=== PATIENT | male | born 1955 | race Caucasian/White ===

== ENCOUNTER 2018-06-27 02:45 | Inpatient (IN) | payer OTHER ==
[~2018-06-27] VITALS: Ht 177.8 cm; Wt 109.6 kg
[2018-06-27] MEDS ORDERED: ONDANSETRON PF 4 MG/2 ML VIAL. IV ONE (03:00)
[2018-06-27] MEDS ORDERED: IV NORMAL SALINE 1,000ML 1,000 ML IV ONE ×2 (03:00→05:30)
[2018-06-27 03:13] LABS: BASO % 0 % (0-3); EOS # 0.2 x10^3/uL (0.0-0.7); EOS % 3 % (0-3); HEMATOCRIT 46.8 % (39.0-53.0); LYMPH # 2.5 x10^3/uL (1.0-4.8); LYMPH % 42 % (24-48); MEAN CORPUSCULAR HEMOGLOBIN 32 pg (25-35); MEAN CORPUSCULAR HGB CONC 34 g/dL (31-37); MEAN CORPUSCULAR VOLUME 93 fL (79-100); MONO # 0.4 x10^3/uL (0.0-1.1); MONO % 7 % (0-9); NEUT # 2.9 x10^3uL (1.8-7.7); NEUT % 48 % (31-73); PLATELET COUNT 244 x10^3/uL (140-400); RED BLOOD COUNT 5.02 x10^6/uL (4.30-5.70); RED CELL DISTRIBUTION WIDTH 13.5 % (11.5-14.5)
--- NOTE | 2018-06-27 03:13 | PHYS DOC ---
Adult General Chief Complaint Chief Complaint: vomiting HPI HPI 62-year-old male presents via EMS with altered mental status. Patient was last known well at 10 PM which was 5 hours ago. The patient woke up about an hour prior to arrival and felt like he was short of breath. He called EMS. When EMS arrived they found the patient to be diaphoretic and lethargic, but able to answer questions. He began vomiting and has vomited about 10 times prior to arrival. He was given 4 of Zofran IV without effect. The patient states that after he woke up he also felt like his left side was numb "like I had been sleeping on it". He is moving all his extremities. The patient's states that she noticed him having slurred speech while talking in the emergency room. The patient has been having a workup as an outpatient for dizziness the last couple weeks. He denies fever or chills. Review of Systems Review of Systems Constitutional: Denies fever or chills [] Eyes: Denies change in visual acuity, redness, or eye pain [] HENT: Denies nasal congestion or sore throat [] Respiratory: Denies cough or shortness of breath [] Cardiovascular: No additional information not addressed in HPI [] GI: Vomiting[] : Denies dysuria or hematuria [] Musculoskeletal: Denies back pain or joint pain [] Integument: Denies rash or skin lesions [] Neurologic: Slurred speech, generalized weakness[] Endocrine: Denies polyuria or polydipsia [] All other systems were reviewed and found to be within normal limits, except as documented in this note. Current Medications Current Medications Current Medications Medications (Trade) Dose Ordered Sig/Derrick Start Time Stop Time Status Last Admin Dose Admin Ondansetron HCl (Zofran) 4 mg 1X ONCE 06/27/18 03:00 06/27/18 03:01 UNV Sodium Chloride 1,000 ml @ 1,000 mls/hr 1X ONCE 06/27/18 03:00 06/27/18 03:59 UNV Physical Exam Physical Exam Constitutional: Well developed, well nourished, moderate acute distress, pale, diaphoretic, vomiting.[] HENT: Normocephalic, atraumatic, bilateral external ears normal, oropharynx moist, no oral exudates, nose normal. [] Eyes: PERRLA, EOMI, conjunctiva normal, no discharge. [] Neck: Normal range of motion, no tenderness, supple, no stridor. [] Cardiovascular:Heart rate regular rhythm, bradycardia 50s, no murmur [] Lungs & Thorax: Bilateral breath sounds clear to auscultation [] Abdomen: Bowel sounds normal, soft, no tenderness, no masses, no pulsatile masses. [] Skin: pale, diaphoretic, no erythema, no rash. [] Back: No tenderness, no CVA tenderness. [] Extremities: No tenderness, no cyanosis, no clubbing, ROM intact, no edema. [] Neurologic: Alert and oriented, slightly slurred speech, moves all extremities but was moving his left leg, less than the right[] Psychologic: Affect normal, judgement normal, mood normal. [] EKG EKG Sinus bradycardia, rate 56, normal axis, no ST elevations or depressions[] Radiology/Procedures Radiology/Procedures [] Course & Med Decision Making Course & Med Decision Making Pertinent Labs and Imaging studies reviewed. (See chart for details) The patient's labs are unremarkable. His head CT is negative. His EKG is unremarkable. His NIH stroke scale is negative. Further discussion with the patient reveals that in addition to the intermittent dizziness he said the last couple weeks, tonight he had severe tenderness in the left ear and states that he still feels like he has decreased hearing without tinnitus in the left ear. An examination of the ear with the otoscope does not show any abnormalities. The patient states that his vision still appears to be double when he opens his eyes. This raises suspicion for Mnire's disease as he has severe dizziness with vomiting and tinnitus and hearing loss. I have treated him with 8 mg of Zofran without effect. We have added 10 mg of Compazine. The patient's vomiting now appears to be controlled. I am concerned that when these medications aren't aware of the patient may have vomiting again. I will admit him to the hospital for further observation and management. The patient was accepted by Dr. Acuña. [] Christa Disclaimer Dragon Disclaimer This electronic medical record was generated, in whole or in part, using a voice recognition dictation system. Departure Departure: Referrals: DIANE CHAVES DO (PCP) DARLYN GOOD DO Jun 27, 2018 03:13
[2018-06-27 03:27] LABS: ALBUMIN 3.9 g/dL (3.4-5.0); ALBUMIN/GLOBULIN RATIO 1.2 (1.0-1.7); CALCIUM 8.5 mg/dL (8.5-10.1); CREATININE 1.3 mg/dL (0.7-1.3); GFR 56.3; POTASSIUM 3.9 mmol/L (3.5-5.1); TOTAL BILIRUBIN 0.3 mg/dL (0.2-1.0); TOTAL PROTEIN 7.1 g/dL (6.4-8.2)
[2018-06-27] MEDS ORDERED: PROCHLORPERAZINE 10 MG/2 ML VIAL. IV ONE (03:30)
--- NOTE | 2018-06-27 03:33 | RAD ---
EXAM: CT Head without IV contrast CLINICAL HISTORY: Altered mental status, confusion COMPARISON: None. TECHNIQUE: Routine CT of the head without contrast. Soft tissues and bone windows were reviewed. PQRS compliance statement - One or more of the following individualized dose reduction techniques were utilized for this study: 1. Automated exposure control 2. Adjustment of the mA and/or kV according to patient size 3. Use of iterative reconstruction technique FINDINGS: There is no evidence of hemorrhage, mass or extra-axial fluid collection. Montaño-white differentiation is maintained with no evidence of edema. There is no mass effect or shift of the intracranial structures. The ventricles, basilar cisterns and cortical sulci are normal in size and configuration for the patients stated age. The cerebellum and brainstem are unremarkable. The calvarium demonstrates no evidence of fracture or focal lesion. There is normal aeration of the visualized paranasal sinuses and mastoid air cells. The visualized portions of the orbits are normal. IMPRESSION: 1. No evidence for acute intracranial abnormality. Electronically signed by: Fran Brito MD (06/27/2018 3:30 AM) [facility]
--- NOTE | 2018-06-27 04:13 | RAD ---
EXAM: AP View of the chest DATE: 06/27/2018 2:49 AM INDICATION: Shortness of air, lethargic, weakness COMPARISON: No Prior FINDINGS: The heart is not enlarged. Mediastinal and hilar contours are normal. No focal parenchymal airspace opacity. No pleural effusion or pneumothorax. IMPRESSION: 1. No radiographic evidence for acute cardiopulmonary process. Electronically signed by: Fran Brito MD (06/27/2018 4:10 AM) [facility]
[2018-06-27] MEDS ORDERED: diphenhydrAMINE 50 MG/ML VIAL IVP ONE (06:00)
[2018-06-27] MEDS: ONDANSETRON PF 4 MG/2 ML VIAL. IV PRN ×2 (06:04→16:57)
[2018-06-27 08:17] VITALS: BP 171/87
[2018-06-27 10:45] VITALS: BP 172/82
[2018-06-27] MEDS ORDERED: LOSA50TA7 PO (11:15)
--- NOTE | 2018-06-27 12:02 | HP ---
ADMIT DATE: 06/27/2018 HISTORY OF PRESENT ILLNESS: The patient is a 62-year-old male patient, who came to the Emergency Room with altered mental status. The patient was last known well at 10:00 p.m. The patient woke up about an hour prior to arrival and felt like he was short of breath. He called the emergency medical service personnel. When they arrived, they found the patient to be diaphoretic and lethargic, but able to answer questions. He began vomiting and has vomited about 10 times prior to arrival. He was given 4 mg of Zofran IV without effect. The patient stated after he woke up, he also felt like his left side was numb like it had been sleeping on it. He is moving all his extremities. The patient's stated that she noticed him having slurred speech while talking in the Emergency Room. The patient has been having a workup as an outpatient for dizziness the last couple of weeks. He denied any fever or chills. He was extensively evaluated in the Emergency Room, has had CT scan of the head without contrast, which basically showed that there is no evidence of hemorrhage, mass, or extraaxial fluid collection. Ibrahim-white differentiation is maintained with no evidence of edema. There is no mass effect or shift of the intracranial structures. The ventricles, basilar cisterns and cortical sulci are normal in size and configuration for the patient's stated age. The cerebellum and brainstem are unremarkable. The calvarium demonstrates no evidence of fracture or focal lesion. There is normal aeration of the visualized paranasal sinuses and mastoid air cells. The visualized portions and orbits are normal. His chest x-ray showed that the heart is not enlarged. Mediastinum and hilar contours are normal. No focal parenchymal airspace opacity. No pleural effusion or pneumothorax. The patient was admitted for further evaluation. When I saw him, he was complaining of tingling and numbness including his left side of the face, left upper extremity and left lower extremity. He also complained of diplopia, but denied any weakness. PAST MEDICAL HISTORY: Significant for hypertension. PAST SURGICAL HISTORY: Significant for tonsillectomy and appendectomy. ALLERGIES: He has no known drug allergies. MEDICATIONS: He is currently on losartan 50 mg once a day. FAMILY HISTORY: He has 1 brother, who is younger and healthy. Two sisters, both older and apparently healthy. His father in his 70s because of coronary artery disease and probably myocardial infarction. His mother is still alive at the age of 90. SOCIAL HISTORY: He is , has 1 daughter and 2 sons. He does not smoke, drink alcohol or recreational drugs. He works for [employer]. REVIEW OF SYSTEMS: The patient denied any blurring of vision, cataract, glaucoma or macular degeneration, but did complain of diplopia. He was complaining of hearing loss in the left side. Denied any nosebleeds, stuffy nose or postnasal drip. Denied nasal bleed. Denied any sore throat, sore tongue, toothache, hoarseness of voice. He did complain of difficulty swallowing, mostly to solids. He did complain of nausea and vomiting and he vomited numerous times before arrival to the Emergency Room. Denied; however, any diarrhea or constipation. Denied any hematemesis, melena or hematochezia. Denied any dysuria, frequency or hematuria. He apparently did complain of shortness of breath, but denied any chest pain, orthopnea, paroxysmal nocturnal dyspnea. Denied any cough, phlegm or hemoptysis. Denied any chills, rigors, or fever. He did complain obviously of dizziness and things spinning around. PHYSICAL EXAMINATION: GENERAL: When I examined him, he was resting, slightly propped up in bed, in no apparent respiratory distress. No pallor, jaundice, cyanosis, or thyromegaly. No jugular venous distension. No limb edema. VITAL SIGNS: His heart rate was 62, blood pressure was 171/87. His temperature was 97.6, respiratory rate 20, and oxygen saturation was 96% on 2 liters of oxygen. HEAD, EYES, EARS, NOSE AND THROAT: Showed normocephalic, atraumatic. NECK: Supple. HEART: Showed normal first and second heart sounds with no gallop, rub, or murmur. CHEST: Clear to auscultation. No crepitation or rhonchi. ABDOMEN: Distended, soft, nontender. No guarding or rigidity. No organomegaly. All hernial orifices intact. Bowel sounds normal. NEUROLOGIC: He was lethargic, but arousable. He has some slurring of speech, but he answers questions appropriately. All his cranial nerves are grossly intact. He seemed to be somewhat weaker on the left side and did complain of tingling that involves left side of the face, left upper extremity and left lower extremity. LABORATORY DATA: They stated his lab work showed a white cell count of 6000, hemoglobin 16, hematocrit 47, MCV 93, and platelet count of 244,000 with normal manual differential. Serum sodium was 144, potassium 3.9, chloride 107, bicarbonate 26, anion gap of 11, BUN 19, creatinine 1.3, estimated GFR was 56 mL per minute. His glucose was 135, calcium was 8.5. Total bilirubin, AST, ALT, alkaline phosphatase were normal. His total protein was 7.1, albumin was 3.9. Serum lipase was at 336. His chest x-ray was unremarkable and CT scan also showed no evidence of any acute intracranial abnormality. PLAN: My plan is to check his fasting lipid profile, consult Dr. Basilio. I have a feeling that he probably has cerebellar infarct, given diplopia and left-sided weakness and hemisensory deficit. He probably eventually need an MRI. Obviously, we will wait for evaluation by Dr. Basilio to decide on further management. JOSE ARELLANO MD DR: ANAMARIA/leola JOB#: [id number] / [id number]
[2018-06-27] MEDS ORDERED: hydrALAZINE 20 MG/ML VIAL. IV PRN (13:00)
[2018-06-27 15:41] VITALS: BP 168/85
[2018-06-27 19:10] VITALS: BP 154/93
--- NOTE | 2018-06-27 21:20 | RAD ---
Bilateral Duplex Carotid Ultrasound: History: Left weakness and numbness. Technique: Grayscale, color Doppler, and spectral Doppler imaging was performed of the arteries of the neck. Findings: Peak systolic velocity in right common carotid artery is 141 cm/sec. Peak systolic velocity in the right internal carotid artery is 107 cm/sec. Maximum end-diastolic velocity in the right internal carotid artery is 28 cm/sec. Right ICA/CCA ratio is less than 1. Peak systolic velocity in the right external carotid artery is 181 cm/sec. Peak systolic velocity in left common carotid artery is 130 cm/sec. Peak systolic velocity in the left internal carotid artery is 73 cm/sec. Maximum end-diastolic velocity in the left internal carotid artery is 19 cm/sec. Left ICA/CCA ratio is less than 1. Peak systolic velocity in the left external carotid artery is 115 cm/sec. Both vertebral arteries demonstrate antegrade flow. Grayscale imaging demonstrates calcified, shadowing plaquing involving the proximal right internal carotid artery. Mild atherosclerotic plaquing involves the left internal carotid artery. Impression: Right greater than left internal carotid artery atherosclerotic plaquing is seen, but no hemodynamically significant internal carotid artery stenosis is identified. Note: Stenosis calculations for carotid ultrasound studies are derived from validated velocity criteria which are known to correlate with the NASCET methodology. Electronically signed by: Adam Lara MD (06/27/2018 9:16 PM) [facility]
[2018-06-27 21:25] LABS: CLARITY,URINE HAZY; COLOR,URINE YELLOW
[2018-06-27 21:26] LABS: BACTERIA,URINE FEW /HPF (0-FEW); BILIRUBIN,URINE NEG (NEG); GLUCOSE,URINE NEG (NEG); HYALINE CASTS, URINE OCC /HPF; NITRITE,URINE NEG (NEG); RBC,URINE 0 /HPF (0-2); SQUAMOUS EPITHELIAL CELL,UR FEW /LPF; UROBILINOGEN,URINE 0.2 mg/dL (0.2 mg/dL)
[2018-06-27 23:50] VITALS: BP 138/71
[2018-06-28 05:45] VITALS: BP 135/75
[2018-06-28 06:40] LABS: HEMATOCRIT 42.4 % (39.0-53.0); HEMOGLOBIN 14.3 g/dL (13.0-17.5); RED BLOOD COUNT 4.5 x10^6/uL (4.30-5.70); RED CELL DISTRIBUTION WIDTH 13.4 % (11.5-14.5); WHITE BLOOD COUNT 9.8 x10^3/uL (4.0-11.0)
[2018-06-28 06:46] LABS: CALCIUM 8.3 mg/dL (8.5-10.1); CREATININE 1.3 mg/dL (0.7-1.3); GFR 56.3
--- NOTE | 2018-06-28 13:45 | EKG ---
[address] [address] Test Date: 2018-06-27 Test Time: 02:50:38 Pat Name: OZ VARGAS Department: Room: 122 A Gender: Vp Training: : 1955 Requested By: DARLYN GOOD Order Number: [id number] Reading MD: Marv Sutton MD Measurements Intervals [place] Rate: P: [place]: QRS: QRSD: T: QT: QTc: Interpretive Statements SR Electronically Signed On 06-30-2018 9:48:36 CDT by Marv Sutton MD
--- NOTE | 2018-06-28 22:44 | CONS ---
DATE OF CONSULTATION: 06/27/2018 NEUROLOGY CONSULTATION REFERRING PHYSICIAN: Nirav Calhoun MD REASON FOR CONSULTATION: Severe dizziness and unsteadiness. HISTORY OF PRESENT ILLNESS: This is a 62-year-old, right-handed male, who has been in usual state of health until this morning when he woke up. He was somewhat confused and disoriented. Then, he felt diaphoretic and short of breath. EMS was activated and found the patient is alert, but starting vomiting. He did vomit about 10 times. On arrival to the Emergency Room, the patient was alert and followed commands. He denies chest pain. He is short of breath. He denies headaches, visual disturbances, dysarthria, dysphagia. The patient will have dizzy spell described as vertigo. He stated he would have a dizzy spell as vertigo even in standing or when he is relaxing in chair. The spell usually lasted a few minutes and disappeared. According to the patient, his speech has been back to normal since admission, but he continues to have numbness and paresthesia of the left face, upper and lower extremities. He denies chest pain or palpitations. Initial non-enhanced head CT scan was unremarkable. Chest x-ray revealed no acute cardiopulmonary process. Apparently, the patient had extensive workup in the Emergency Room and evaluation for dizziness outside the hospital. He also complains of intermittent diplopia. PAST MEDICAL HISTORY: Significant for hypertension. PAST SURGICAL HISTORY: Positive for tonsillectomy and appendectomy. FAMILY HISTORY: His father at the age of 70 from myocardial infarction. His mother is alive at the age of 90. SOCIAL HISTORY: The patient is . He has 1 daughter and 2 sons. He denies smoking, alcohol drinking, or illicit drug use. REVIEW OF SYSTEMS: A 10-point review of system was performed as mentioned above in history of present illness, otherwise, unremarkable. PHYSICAL EXAMINATION: GENERAL: Well-developed, well-nourished male, not in acute distress. VITAL SIGNS: Blood pressure 154/93, respiratory rate 20, pulse is 72, temperature 98.9, oxygen saturation 95% on room air. HEENT: Normocephalic, atraumatic, otherwise, unremarkable. NECK: Supple. Negative for carotid bruit, JVD, lymphadenopathy or thyromegaly. LUNGS: Clear to A and P. CARDIOVASCULAR: Regular rate and rhythm, normal S1, S2. There is a 2/6 systolic murmur radiating to the left side of the neck. NEUROLOGIC: MENTAL STATUS: The patient is alert and oriented x 3. Speech is fluent. There is no language dysfunction. Memory, judgment, and abstract thinking are normal. The patient denies hallucination or delusion. CRANIAL NERVES: Visual bee are full. The pupils are reactive to light and accommodation. The extraocular movements are intact. There is no nystagmus. There is no facial motor or sensory deficit. Hearing is diminished on the left side. The palate is elevated symmetrically. Sternocleidomastoid muscles are powerful bilaterally. The patient shrugs his shoulders symmetrically and protrudes his tongue in the midline without fasciculation or atrophy. MOTOR EXAMINATION: No focal muscle bulk was seen. The tone is normal. The strength is 5/5 throughout. Sensory examination revealed normal pinprick and light touch normal pinprick, light touch, vibratory and position senses. Deep tendon reflexes were symmetric and active with absent Achilles responses. Gait: The stance is unsteady. The patient is ataxic. He is not able to walk. EXTREMITIES: Negative for cyanosis, clubbing or pitting edema. LABORATORY DATA: CBC revealed white blood cells of 6000, hemoglobin 16, hematocrit 46.8, platelet count 244,000. Chemistry revealed sodium of 144, potassium 3.9, chloride 107, CO2 of 26, BUN is 19, creatinine 1.3, glucose 135. Liver enzymes are normal. Troponin level is 0.041. Urinalysis is negative for urinary tract infections. IMPRESSION: 1. Acute onset of unsteady stance - active, rule out cerebellar pathology. 2. History of dizziness described as vertigo. 3. Systolic murmur. 4. Hypertension. RECOMMENDATIONS: 1. Treat the underlying hypertension. 2. Physical therapy as tolerated. 3. Brain MRI, rule out central and cerebellar pathology. M Ulises LINDSAY MD DR: JAZMINE/leola JOB#: [id number] / [id number]
--- NOTE | 2018-06-28 23:08 | CONS ---
DATE OF CONSULTATION: 06/27/2018 REFERRING PHYSICIAN: Nirav Calhoun MD REASON FOR CONSULTATION: Mental status changes and unsteady gait. HISTORY OF PRESENT ILLNESS: This is a 62-year-old right-handed male, who was admitted through Emergency Room after he presented with a chief complaint of sudden onset of dizziness and unsteady gait. According to the patient, he woke up this morning and was short of breath. He activated EMS who found the patient diaphoretic and lethargic. The patient was able to answer questions and move all extremities; however, he complains of numbness and paresthesia of the left face, upper and lower extremities. The patient's noticed her having slurred speech. He did vomit several times at home. He was given Zofran intravenously by EMS personnel without significant relief of his symptoms. The patient denies chest pain, visual disturbances, palpitations or weakness. PAST MEDICAL HISTORY: Significant for hypertension. SOCIAL HISTORY: The patient is . He has 1 daughter and 2 sons. 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 He denies smoking, alcohol drinking or illicit drug use. FAMILY HISTORY: Noncontributory. ALLERGIES: No known drug allergies. PAST MEDICAL HISTORY: Significant for appendectomy and tonsillectomy. CURRENT HOME MEDICATIONS: Include losartan 50 mg once daily. REVIEW OF SYSTEMS: A 10-point review of systems was performed and as consistent with history of present illness and more prominent on unsteady stance and tendency to fall. PHYSICAL EXAMINATION: GENERAL: Well-developed, well-nourished male, not in acute distress, moderately obese white male, not in acute distress. He weighs 243 pounds with a BMI of 34.9. VITAL SIGNS: Blood pressure 154/93, respiratory rate 20, pulse is 72 and regular, temperature 98.9, oxygen saturation 95% on room air. HEENT: Normocephalic, atraumatic, otherwise, unremarkable. NECK: Supple. Negative for carotid bruit, lymphadenopathy or thyromegaly. LUNGS: Clear to A and P. CARDIOVASCULAR: Regular rate and rhythm, normal S1, S2. There is no S3, S4, or murmurs. ABDOMEN: Soft. Bowel sounds positive. EXTREMITIES: Negative for cyanosis, clubbing or pitting edema. NEUROLOGIC: Mental status: The patient is alert and oriented x 3. Speech is fluent. There is no language dysfunction. Memory, the patient recalls 2/3 immediately and after 1 and 3 minutes. Judgment and abstract thinking are normal. The patient denies hallucination or delusion. CRANIAL NERVES: Visual bee are full. The pupils are reactive to light and accommodation. The extraocular movements are intact. There is no nystagmus. There is no facial motor or sensory deficit. Hearing is intact, it is diminished over the left side. The palate is elevated symmetrically. Sternocleidomastoid muscles are powerful bilaterally. The patient shrugs his shoulders symmetrically and protrudes his tongue in the midline without fasciculation or atrophy. MOTOR: No focal muscle bulk was seen. The tone is normal. The strength is 5/5 throughout. SENSORY: Revealed normal pinprick, light touch, vibratory and position senses. Deep tendon reflexes were symmetric and hypoactive with absent Achilles responses. Gait: The stance is unsteady. The patient cannot walk without assistance. IMPRESSION: 1. Acute onset of dizzy spell described as vertigo along with ataxia, rule out central nervous system pathology versus cerebellar ischemic infarct. 2. Multiple medical problems include hypertension. RECOMMENDATIONS: 1. Continue with current management initiated by Dr. Calhoun. 2. Physical therapy evaluation. 3. Brain MRI with contrast. M Ulises LINDSAY MD DR: JAZMINE/leola JOB#: [id number] / [id number]
--- NOTE | 2018-06-28 23:53 | DS ---
DATE OF DISCHARGE: 06/28/2018 HOSPITAL COURSE: The patient is a 62-year-old male patient, who was admitted yesterday through the Emergency Room as he complained of shortness of breath. He was found to be diaphoretic and lethargic, but able to answer questions. He began vomiting and he has vomited about 10 times prior to arrival. He was given 4 mg of Zofran without any improvement. The patient stated after he woke up, he also felt like his left side was numb. His stated his speech was slurred while talking. In the Emergency Room, the patient has been having a workup as an outpatient for dizziness; however, the last couple of weeks, he denied any fever or chills. He was extensively evaluated in the Emergency Room and had a CT scan of the head without contrast, which basically showed no evidence of any hemorrhage, mass, or extraaxial fluid collection. Ibrahim-white differentiation is maintained with no evidence of edema. There is no mass effect or shift of the intracranial structures. The ventricles and basilar cisterns and cortical sulci are normal in size and configuration for the patient's stated age. The cerebellum and brainstem are unremarkable. The calvarium demonstrates no evidence of fracture. The patient did also complain that he has diplopia and also he is hearing loss in the left side. He was evaluated by the speech therapy as well as the neurologist and the recommendation was for him to be transferred to [facility] for MRI and MRA of brain and neck. PHYSICAL EXAMINATION: GENERAL: On transferring him this morning, he looked well and was clearly in no apparent respiratory distress. No pallor, jaundice, cyanosis, or thyromegaly. No jugular venous distension. No lower limb edema. VITAL SIGNS: His heart rate was 65, blood pressure was 135/75, temperature was 98.8, respiratory rate was 18 and oxygen saturation was 94%. NEUROLOGI: He continued to have diplopia and slurring of his speech as well as unsteadiness and although he had no obvious weakness, but he continued to feel numb in his left upper and left lower extremity and left side of the face. LABORATORY DATA: Showed a serum sodium 143, potassium of 4, chloride 108, bicarbonate 27, anion gap of 8, BUN 19, creatinine 1.3, estimated GFR was 56 mL per minute. His glucose was 108, calcium was 8.3. His white cell count was 9800, hemoglobin 14, hematocrit 42, MCV 94 and platelet count 244,000. He did have a chest x-ray, which was unremarkable. No radiographic evidence of acute cardiopulmonary process. His head CT scan showed that there is no evidence of hemorrhage, mass, or extraaxial fluid collection. Ibrahim-white differentiation is maintained with no evidence of edema. There is no mass effect or shift of the intracranial structures. The ventricles and basilar cisterns and cortical sulci are normal in size and configuration for the patient's stated age. The cerebellum and brainstem are unremarkable. The calvarium demonstrates no evidence of fracture or local focal lesion. There is normal aeration of the visualized paranasal sinuses and mastoid air cells. The visualized portion of the orbits are normal. We did a carotid Doppler, which showed that there is right greater than left internal carotid artery atherosclerotic plaquing is seen, but no hemodynamically significant internal carotid artery stenosis identified. The patient was transferred to [facility] to arrange for an MRI and MRA of his brain and an MRI of the neck and port gamble of [place]. We will consult a neurologist. He was seen by the speech therapist and also ordered physical and occupational therapist. FINAL DISCHARGE DIAGNOSES: Probably left cerebellar infarct, hypertension. JOSE ARELLANO MD DR: ANAMARIA/leola JOB#: [id number] / [id number]
--- NOTE | 2018-06-29 04:23 | PN ---
DATE: 06/28/2018 SUBJECTIVE: The patient complains of mild headache, left hearing loss compared to the right and unsteady stance along with vertigo. He denies nausea, vomiting, chest pain, shortness of breath or palpitation, dysarthria or dysphagia. The patient also complains of diplopia when he looks to the left side. He sees objects one beside the others He denies chest pain, shortness of breath or palpitation. OBJECTIVE: GENERAL: Obese white male, not in acute distress. VITAL SIGNS: Blood pressure 135/75, respiratory rate 18, pulse is 65 and regular, temperature 98.8, oxygen saturation 94% on room air. HEENT: Normocephalic, atraumatic, otherwise, unremarkable. NECK: Supple. Negative for carotid bruit, lymphadenopathy or thyromegaly. LUNGS: Clear to A and P. CARDIOVASCULAR: Regular rate and rhythm, normal S1, S2. ABDOMEN: Soft. Bowel sounds positive. EXTREMITIES: Negative for cyanosis, clubbing or pitting edema. NEUROLOGIC: Mental Status: The patient is alert and oriented x 3. Speech is fluent. There is no language dysfunction. Memory, judgment and abstract thinking are normal. The patient denies hallucination or delusion. CRANIAL NERVES: Visual bee are full. The pupils are reactive to light and accommodation. The extraocular movements are intact. There is no nystagmus. There is no facial motor or sensory deficit. Hearing is slightly diminished on the left side compared to that on the right side. There is no facial motor or sensory deficit. The palate is elevated symmetrically. Sternocleidomastoid muscles are powerful bilaterally. The patient shrugs his shoulders symmetrically, protrudes his tongue in the midline without fasciculation or atrophy. Motor: No focal muscle bulk was seen. The tone is normal. The strength is 5/5 throughout. However, the patient has abnormal [id number] and [id number] with past-pointing. Sensory examination revealed normal pinprick and light touch senses throughout. Deep tendon reflexes were symmetric and hypoactive with absent Achilles responses. Gait: The patient is severely ataxic. IMPRESSION: 1. Acute vertigo with severe cerebellar dysfunctions and ataxia, rule out cerebellar versus brainstem pathology, rule out tumor versus stroke. 2. History of hypertension. RECOMMENDATION: Await for brain MRI and MRA. M Ulises LINDSAY MD DR: Rehan JOB#: [id number] / [id number]
== END 2018-06-28 09:55 | disposition short-term general hospital (02) | DRG 66 ==
LOC: ER 02:45 → 1 SOUTH 05:26
PROVIDERS: ADMIT Neuromusculoskeletal Medicine & OMM; ATTEND Neuromusculoskeletal Medicine & OMM
DX: I63.9 Cerebral infarction, unspecified (principal); H91.92 Unspecified hearing loss, left ear; H53.2 Diplopia; I10 Essential (primary) hypertension; Z82.49 Family history of ischemic heart disease and other diseases of the circulatory system; Z90.49 Acquired absence of other specified parts of digestive tract; Z79.899 Other long term (current) drug therapy
CPT/HCPCS: 36415; 70450; 71045; 80048; 80053; 80061; 81001; 83690; 84484; 85025; 85027; 93005; 93880; 96361; 96374; 96375; J0360; J0780; J1200; J2405; 92610; 99285-25; J7030